=== PATIENT | male | born 1970 | race Caucasian/White ===

== ENCOUNTER 2022-02-28 07:41 | Emergency (ER) | payer OTHER ==
[2022-02-28 07:57] VITALS: RESP 20; BMI 39.4
[2022-02-28] MEDS ORDERED: ACETAMINOPHEN 1000 MG/100 ML BAG IVPB ONE (08:20)
[2022-02-28] MEDS ORDERED: LACTATED RINGERS SOLUTION 1000 ML INFUS.BAG IV ONE ×2 (08:20→10:30)
[2022-02-28] MEDS ORDERED: ACETAMINOPHEN INJECTION 100 ML IVPB ONE (08:21)
[2022-02-28] MEDS ORDERED: SODIUM CHLORIDE 0.9% 500 ML INFUS.BAG IV ONE (08:52)
[2022-02-28 09:03] LABS: BASO % 0.3 % (0-2.0); HEMATOCRIT 43.9 % (35.4-49); HEMOGLOBIN 14.8 GM/dL (11.7-16.9); LYMPH % 9.6 % (8-40); MCH 27.5 pg (25.7-33.7); MCHC 33.7 g/dl (32.0-35.9); MEAN CELL VOLUME 81.5 fl (80-96); MONO % 13.3 % (3.8-10.2); NEUT % 76.8 % (42.8-82.8); PLATELET COUNT 239 10^3/uL (134-434); RBC 5.39 M/mm3 (4.00-5.60); WHITE BLOOD COUNT 11.8 K/mm3 (4.0-10.0)
[2022-02-28 09:16] LABS: INR 1.09 (0.83-1.09); PROTHROMBIN TIME (PATIENT) 12.5 SEC (9.7-13.0)
[2022-02-28 09:17] LABS: VENOUS BASE EXCESS 0.6 mmol/L (-2-2); VENOUS PCO2 41.9 mmHg (38-52); VENOUS PH 7.402 (7.310-7.410)
[2022-02-28 09:19] LABS: ACTIVATED PTT 30.7 SECONDS (25.2-36.5)
[2022-02-28 09:27] LABS: CALCIUM 8.7 mg/dL (8.5-10.1)
[2022-02-28 09:28] LABS: ALBUMIN 3.3 g/dl (3.4-5.0); BLOOD UREA NITROGEN 7.8 mg/dL (7-18)
[2022-02-28 09:31] LABS: CREATININE 0.9 mg/dL (0.55-1.3)
[2022-02-28 09:32] LABS: TOT PROT 7.7 g/dl (6.4-8.2)
[2022-02-28 09:33] LABS: BILIRUBIN,TOTAL 0.4 mg/dL (0.2-1)
[2022-02-28 11:25] LABS: EPI CELLS 11 /uL (0-25.1); HYALINE CASTS 0 /uL (0-3.1); PH,URINE 5.5 (5.0-8.0); URINE APPEARANCE CLEAR; URINE BACTERIA 6 /uL (0-1359); URINE BILIRUBIN NEGATIVE (NEGATIVE); URINE COLOR YELLOW; URINE GLUCOSE (UA) 3+ (NEGATIVE); URINE KETONE TRACE (NEGATIVE); URINE LEUK ESTERASE NEGATIVE (NEGATIVE); URINE NITRITE NEGATIVE (NEGATIVE); URINE PROTEIN 1+ (NEGATIVE); URINE RBC 5 /uL (0-23.9); URINE UROBILINOGEN 0.2 mg/dL (0.2-1.0); URINE WBC 5 /uL (0-25.8)
[2022-02-28] MEDS ORDERED: IBUPROFEN 600 MG TABLET (FP) PO ONE ×2 (13:26)
[2022-02-28] MEDS ORDERED: SODIUM CHLORIDE FOR INHALATION 3 ML VIAL.NEB IH ONE (13:35)
[2022-02-28 13:49] VITALS: BP 140/72
[2022-02-28 15:14] VITALS: PULSE 107; TEMP 100
== END 2022-02-28 15:31 | disposition home or self-care (01) ==
LOC: JER 07:41
PROC: 3E033GC Introduction of Other Therapeutic Substance into Peripheral Vein, Percutaneous Approach (ICD-10-PCS; principal; 2022-02-28)
PROC: 3E0F7GC Introduction of Other Therapeutic Substance into Respiratory Tract, Via Natural or Artificial Opening (ICD-10-PCS; 2022-02-28)
DX: E11.69 Type 2 diabetes mellitus with other specified complication (principal); J06.9 Acute upper respiratory infection, unspecified; R50.9 Fever, unspecified
CPT/HCPCS: 0241U-QW; 36415; 71045-TC-FY; 80053; 81003; 82010; 82803; 82962; 83605; 84484; 85025; 85610; 85730; 86850; 86900; 86901; 87040; 87086; 93005; 93010; 99291

== ENCOUNTER 2022-11-07 10:36 | Emergency (ER) | payer OTHER ==
[2022-11-07 10:40] VITALS: BMI 32.9
[2022-11-07] MEDS ORDERED: LACTATED RINGERS SOLUTION 1000 ML INFUS.BAG IV ONE (12:32)
[2022-11-07] MEDS ORDERED: ACETAMINOPHEN 1000 MG/100 ML BAG IVPB ONE ×2 (12:32→17:30)
[2022-11-07] MEDS ORDERED: ACETAMINOPHEN INJECTION 100 ML IVPB ONE ×2 (12:54→17:40)
[2022-11-07] MEDS ORDERED: ONDANSETRON 4 MG/2 ML VIAL IVPUSH ONE (13:00)
[2022-11-07 13:23] LABS: BASO % 0.6 % (0-2.0); EOS % 0.1 % (0-4.5); HEMATOCRIT 45.4 % (35.4-49); HEMOGLOBIN 15.8 GM/dL (11.7-16.9); LYMPH % 9.8 % (8-40); MCHC 34.8 g/dl (32.0-35.9); MEAN CELL VOLUME 80.6 fl (80-96); MEAN PLT VOLUME 7.5 fl (7.5-11.1); MONO % 3.1 % (3.8-10.2); NEUT % 86.4 % (42.8-82.8); PLATELET COUNT 347 10^3/uL (134-434); RBC 5.63 M/mm3 (4.00-5.60); RDW 13.8 % (11.9-15.9); WHITE BLOOD COUNT 12.2 K/mm3 (4.0-10.0)
[2022-11-07 13:38] LABS: POTASSIUM 4.5 mmol/L (3.5-5.1)
[2022-11-07 13:40] LABS: ALBUMIN 3.8 g/dl (3.4-5.0); CALCIUM 9.7 mg/dL (8.5-10.1)
[2022-11-07 13:41] LABS: BLOOD UREA NITROGEN 7.9 mg/dL (7-18); MAGNESIUM 1.9 mg/dL (1.8-2.4)
[2022-11-07 13:43] LABS: CREATININE 0.9 mg/dL (0.55-1.3)
[2022-11-07 13:45] LABS: BILIRUBIN,TOTAL 0.5 mg/dL (0.2-1); TOT PROT 8.2 g/dl (6.4-8.2)
[2022-11-07 15:03] VITALS: PULSE 90; TEMP 98
[2022-11-07 17:36] LABS: BASO % 0.8 % (0-2.0); EOS % 0.5 % (0-4.5); HEMATOCRIT 44.5 % (35.4-49); HEMOGLOBIN 15.1 GM/dL (11.7-16.9); LYMPH % 18.1 % (8-40); MCH 27.7 pg (25.7-33.7); MCHC 33.8 g/dl (32.0-35.9); MEAN CELL VOLUME 81.9 fl (80-96); MEAN PLT VOLUME 7.4 fl (7.5-11.1); MONO % 5.6 % (3.8-10.2); PLATELET COUNT 294 10^3/uL (134-434); RBC 5.44 M/mm3 (4.00-5.60); RDW 13.6 % (11.9-15.9); WHITE BLOOD COUNT 11.6 K/mm3 (4.0-10.0)
[2022-11-07 18:51] VITALS: BP 153/81; RESP 18
== END 2022-11-07 18:50 | disposition home or self-care (01) ==
LOC: JER 10:36
PROC: 3E033NZ Introduction of Analgesics, Hypnotics, Sedatives into Peripheral Vein, Percutaneous Approach (ICD-10-PCS; principal; 2022-11-07)
PROC: 3E033NZ Introduction of Analgesics, Hypnotics, Sedatives into Peripheral Vein, Percutaneous Approach (ICD-10-PCS; 2022-11-07)
DX: R10.84 Generalized abdominal pain (principal); K92.1 Melena; K52.9 Noninfective gastroenteritis and colitis, unspecified; Z20.822 Contact with and (suspected) exposure to COVID-19
CPT/HCPCS: 0241U-QW; 36415; 71045-TC-FY; 74177-TC; 80053; 82272; 83735; 85025; 99285-25; Q9967